=== PATIENT | female | born 1980 | race Caucasian/White ===

== ENCOUNTER 2022-01-31 11:06 | Outpatient (CLI) | payer BC, SELFPAY | END 2022-01-31 11:07 | disposition home or self-care (01) | PROVIDERS: PCP Family Medicine; Visit Provider Obstetrics & Gynecology | DX: R30.0 Dysuria (principal) | CPT/HCPCS: 87086 ==

== ENCOUNTER 2023-07-24 11:30 | Outpatient (RCR) | payer BC, SELFPAY | END 2023-11-21 23:59 | disposition home or self-care (01) | PROVIDERS: PCP Family Medicine; Visit Provider Student in an Organized Health Care Education/Training Program | DX: S76.211A Strain of adductor muscle, fascia and tendon of right thigh, initial encounter (principal); Z51.89 Encounter for other specified aftercare | CPT/HCPCS: 97110; 97112; 97140; 97161 ==

== ENCOUNTER 2024-01-02 09:18 | Outpatient (CLI) | payer BC, SELFPAY ==
[2024-01-05 03:02] LABS: HPV Source Cervical; HPV, High Risk by TMA Not Detected
== END 2024-01-02 09:19 | disposition home or self-care (01) ==
PROVIDERS: PCP Family Medicine; Visit Provider Obstetrics & Gynecology
DX: Z12.4 Encounter for screening for malignant neoplasm of cervix (principal)
CPT/HCPCS: 87624; 87625; 88141; 88142